=== PATIENT | male | born 1965 | race Caucasian/White ===

== ENCOUNTER → 2022-07-26 | Day surgery (SDC) | payer BC ==
[~2022-07-26] MED LIST: AMLODIPINE BESYL5 MG PO; ASPIRIN EC81 MG PO; ESIDRIX25 MG PO; HYOSCYAMINE SULFATE 0.5 MG/ML INJ ONE; LACTATED RINGER'S 1,000 ML BAG IV ONE; LEXAPRO10 MG PO; LIDOCAINE HCL 2% LOCAL INJ 5 ML SDV VIAL INJ ONE; LISINOPRIL10 MG PO; LOPRESSOR25 MG PO; METFORMIN HCL500 M1 PO; NORVASC5 MG PO; OZEMPIC0.25 MG/0. SC; PRILOSEC20 MG PO; PROPOFOL IV EMULSION 10 MG/ML 20 ML VIAL ONE; TESSALON PERLE100 MG PO; TRADJENTA5 MG PO; XOPENEX HFA15 GM INH
[2022-07-26 08:59] VITALS: TEMP 98
[2022-07-26 09:30] VITALS: BP 122/84; PULSE 100; RESP 16; O2SAT 98
== END | disposition home or self-care (01) ==
LOC: OR 06:58
PROVIDERS: ATTEND Internal Medicine Gastroenterology
DX: Z12.11 Encounter for screening for malignant neoplasm of colon (principal); D12.3 Benign neoplasm of transverse colon; K57.30 Diverticulosis of large intestine without perforation or abscess without bleeding; K64.8 Other hemorrhoids; K21.9 Gastro-esophageal reflux disease without esophagitis; E11.9 Type 2 diabetes mellitus without complications; I10 Essential (primary) hypertension; E78.5 Hyperlipidemia, unspecified; I25.10 Atherosclerotic heart disease of native coronary artery without angina pectoris; F32.A Depression, unspecified; Z01.810 Encounter for preprocedural cardiovascular examination; Z79.82 Long term (current) use of aspirin; Z79.84 Long term (current) use of oral hypoglycemic drugs; Z79.85 Long-term (current) use of injectable non-insulin antidiabetic drugs; Z79.899 Other long term (current) drug therapy
CPT/HCPCS: 36415; 45385; 82948; 93005; J1980; J2001; J2704; J7121